=== PATIENT | female | born 1945 | race Caucasian/White ===

== ENCOUNTER → 2021-03-17 08:00 | Outpatient (CLI) | payer OTHER ==
[~2021-03-17 08:00] MED LIST: ASA81 MG PO; CILOSTAZOL100 MG PO; CYMBALTA PO; EVISTA60 MG PO; GABAPENTIN100 MG PO; GLUCOSAM-CHOND1 EACH PO; LOSARTAN-HCTZ1 EAC1 PO; NAPR500T14 PO; NORVASC2.5 M1 PO; PLAVIX75 MG PO; PLETAL PO; PROTONIX40 MG PO; SIMVASTATIN40 MG PO; SOLARAZE100 GM; VALSARTAN PO; VASOFL PO; VASOFLEX TABLET1 TAB PO; ZANTAC300 MG PO; [UNRECOGNIZED DRUG - OTHER] PO
== END | disposition home or self-care (01) ==
LOC: LAB 08:00 → ADM 11:30 → CIR.AMB 03-20 10:30 → EDSTATUS 03-20 11:30 → CIR.AMB 03-20 11:30
PROVIDERS: ATTEND Colon & Rectal Surgery
DX: R15.9 Full incontinence of feces (principal); Z01.810 Encounter for preprocedural cardiovascular examination; K59.09 Other constipation; N39.0 Urinary tract infection, site not specified; K62.5 Hemorrhage of anus and rectum; D59.8 Other acquired hemolytic anemias; D68.8 Other specified coagulation defects; Z20.828 Contact with and (suspected) exposure to other viral communicable diseases; Z11.59 Encounter for screening for other viral diseases

== ENCOUNTER 2021-05-04 05:54 | Day surgery (SDC) | payer OTHER | END 2021-05-04 13:20 | disposition home or self-care (01) | LOC: CIR.AMB 05:54 | PROVIDERS: ATTEND Colon & Rectal Surgery | DX: T85.111A Breakdown (mechanical) of implanted electronic neurostimulator of peripheral nerve electrode (lead), initial encounter (principal); T85.732A Infection and inflammatory reaction due to implanted electronic neurostimulator of peripheral nerve, electrode (lead), initial encounter; Z20.822 Contact with and (suspected) exposure to COVID-19 | CPT/HCPCS: 64581; 64590; 95971; C1778; L8679 ==